=== PATIENT | male | born 1955 | race Caucasian/White ===

== ENCOUNTER 2025-06-01 14:14 | Outpatient (CLI) | payer MEDICARE ==
--- NOTE | 2025-06-01 17:01 | RADIOLOGY REPORT ---
CLINICAL HISTORY: VERTEBROGENIC LOW BACK PAIN TECHNIQUE: MRI of the thoracic spine was performed without gadolinium. COMPARISON: None FINDINGS: The alignment and bone marrow signal of the thoracic spine or normal. The vertebral body heights and intervertebral disc spaces are maintained. The thoracic spinal cord is normal in caliber. There is no evidence for compression or abnormal signal. There are multi level tiny disc protrusions. There is no significant central canal or neuroforaminal narrowing. IMPRESSION: Minimal degenerative changes of the thoracic spine. No significant central canal or nerve foraminal narrowing.
--- NOTE | 2025-06-01 17:18 | RADIOLOGY REPORT ---
CLINICAL HISTORY: VERTEBROGENIC LOW BACK PAIN TECHNIQUE: MRI of the lumbar spine was performed without gadolinium. COMPARISON: None FINDINGS: There is 3mm Grade 1 L1-L2 and 2mm Grade 1 L2-L3 retrolisthesis. The vertebral body heights are maintained. There is moderate L1-L2 and akrv-se-dqewiyxf L2-L3 disc space loss. The bone marrow signal is unremarkable. The conus medullaris terminates appropriately at L1. At t T12-L1, a small diffuse dispose does not result in significant central canal or neuroforaminal narrowing. At L1-L2 and L2-L3, there are diffuse disc osteophyte complexes and left greater than right foot said hypertrophy which result in [id number]-[id number] left L1-L2 and L2-L3 neuroforaminal narrowing. At L3-L4, there is a small diffuse disc bulge and 1st hypertrophy which results in mild bilateral neuroforaminal narrowing. At L4-L5, there is a diffuse disc bulge and facet hypertrophy which result in [id number] left neuroforaminal narrowing. At L5-S1, there is a small broad based posterior disc protrusion and significant left facet hypertrophy which results in minimal bilateral neuroforaminal narrowing. Ehnb-qo-ltrawyta IMPRESSION: [id number]-[id number] left L1-L2, L2-L3, and L4-L5 neuroforaminal narrowing. No significant central canal stenosis.
--- NOTE | 2025-06-01 23:46 | RADIOLOGY REPORT ---
CLINICAL INDICATION: BACK PAIN, RIGHT HIP PAIN TECHNIQUE: DI HIP UNILATERAL 2 VIEWS Comparison: None FINDINGS/IMPRESSION: : There is no evidence of acute fracture or dislocation. 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 Soft tissues are unremarkable.
== END 2025-06-01 23:59 | disposition home or self-care (01) ==
LOC: MRI02 14:14
PROVIDERS: ATTEND Internal Medicine
DX: M51.27 Other intervertebral disc displacement, lumbosacral region (principal); M48.07 Spinal stenosis, lumbosacral region; M16.11 Unilateral primary osteoarthritis, right hip
CPT/HCPCS: 72146; 72148; 73502